=== PATIENT | female | born 1975 | race Two or more races ===

== ENCOUNTER 2023-03-23 14:24 | Outpatient (REF) | payer OTHER, SELFPAY ==
--- NOTE | ~2023-03-23 | XR_ITS ---
EXAMINATION: XR LUMBAR SPINE XR STANDING BILATERAL KNEES, LATERAL BILATERAL KNEES CLINICAL INFORMATION: Bilateral knee pain, low back pain. COMPARISON: None available. TECHNIQUE: 3 views of the lumbar spine. AP standing and lateral views of the bilateral knees. FINDINGS: RIGHT KNEE: No significant joint effusion. Small tricompartmental osteophytes. Mild medial and posterior patellar joint space narrowing. Small amorphous calcifications adjacent to the medial and lateral femoral condyles. LEFT KNEE: Small tricompartmental osteophytes. Small quadriceps spur. Trace joint effusion. Mild medial joint space narrowing. LUMBAR SPINE: Surgical clips in the right upper quadrant. Levoscoliosis of the lumbar spine. Asymmetric, right greater than left, facet arthritis at L4-L5 and L5-S1. Moderate multilevel lumbar spondylosis with mild loss of disc space height at L4-L5 and L5-S1. Grade 1 anterolisthesis of L5 on S1. XR/XR lumbar spine 2-3V IMPRESSION: 1. Mild degenerative changes in the bilateral knees. 2. Asymmetric, right greater than left, facet arthritis at L4-L5 and L5-S1. 3. Moderate multilevel lumbar spondylosis at L4-L5 and L5-S1.
--- NOTE | ~2023-03-23 | XR_ITS ---
EXAMINATION: XR LUMBAR SPINE XR STANDING BILATERAL KNEES, LATERAL BILATERAL KNEES CLINICAL INFORMATION: Bilateral knee pain, low back pain. COMPARISON: None available. TECHNIQUE: 3 views of the lumbar spine. AP standing and lateral views of the bilateral knees. FINDINGS: RIGHT KNEE: No significant joint effusion. Small tricompartmental osteophytes. Mild medial and posterior patellar joint space narrowing. Small amorphous calcifications adjacent to the medial and lateral femoral condyles. LEFT KNEE: Small tricompartmental osteophytes. Small quadriceps spur. Trace joint effusion. Mild medial joint space narrowing. LUMBAR SPINE: Surgical clips in the right upper quadrant. Levoscoliosis of the lumbar spine. Asymmetric, right greater than left, facet arthritis at L4-L5 and L5-S1. Moderate multilevel lumbar spondylosis with mild loss of disc space height at L4-L5 and L5-S1. Grade 1 anterolisthesis of L5 on S1. XR/XR knee standing BI IMPRESSION: 1. Mild degenerative changes in the bilateral knees. 2. Asymmetric, right greater than left, facet arthritis at L4-L5 and L5-S1. 3. Moderate multilevel lumbar spondylosis at L4-L5 and L5-S1.
[2023-03-23 16:14] LABS: MANUAL DIFF FLAG NO
[2023-03-23 16:23] LABS: Basophils Absolute Auto 0.1 X10*3/uL (0.0-0.2); Basophils Percent Auto 0.8 % (0-2); Eosinophils Absolute Auto 0.1 X10*3/uL (0.0-0.4); Eosinophils Percent Auto 1.5 % (0-4); Hematocrit 44.9 % (37.0-47.0); Imm Gran Abs Auto 0.04 X10*3/uL (0.00-0.03); Imm Gran Pct Auto 0.5 % (0.0-0.4); Lymphocytes Absolute Auto 3.2 X10*3/uL (1.2-4.9); Lymphocytes Percent Auto 42.9 % (20-40); Mean Corpuscular HGB Conc 33.4 g/dl (31.0-35.0); Mean Corpuscular Hemoglobin 30.4 pg (27.0-33.0); Mean Corpuscular Volume 90.9 fL (80.0-98.0); Monocytes Absolute Auto 0.9 X10*3/uL (0.1-1.2); Monocytes Percent Auto 12.1 % (2-11); Neutrophils Absolute Auto 3.1 x10*3/uL (2.0-8.3); Neutrophils Percent Auto 42.2 % (45-73); Platelet Count 313 X10*3/uL (160-400); Red Blood Count 4.94 X10*6/uL (4.20-5.50); Red Cell Distribution Width 13.5 % (11.0-16.0); White Blood Count 7.4 X10*3/uL (4.8-10.8)
[2023-03-23 16:51] LABS: Alanine Aminotransferase 39 U/L (0-31); Albumin Level 4.1 g/dL (3.5-5.0); Alkaline Phosphatase 87 U/L (39-117); Anion Gap 16 (12-20); Aspartate Amino Transferase 18 U/L (5-31); Bilirubin Total 0.4 mg/dL (0.0-1.0); Blood Urea Nitrogen 13 mg/dL (9-16); Calcium 9.2 mg/dL (8.4-10.2); Carbon Dioxide 22 mmol/L (22-29); Chloride 108 mmol/L (96-108); Cholesterol 142 mg/dL (<200); Estimated Glomerular Filt Rate > 60; Glucose Random 87 mg/dL (60-115); HDL Cholesterol 49 mg/dL (>40); LDL Cholesterol Calculated 81 mg/dL (<100); Potassium 3.6 mmol/L (3.3-5.1); Sodium 142 mmol/L (135-145); Total Protein 8.1 g/dL (6.5-8.0); Triglycerides 64 mg/dL (<150)
[2023-03-23 17:01] LABS: Free T4 (Free Thyroxine) 0.99 ng/dL (0.71-1.85); Thyroid Stimulating Hormone 0.83 uIU/mL (0.32-4.0)
== END 2023-03-23 14:25 | disposition home or self-care (01) ==
LOC: HO.HMGCX 14:24
PROVIDERS: PCP Internal Medicine; Visit Provider Internal Medicine
DX: M54.50 Low back pain, unspecified (principal); M25.561 Pain in right knee; M25.562 Pain in left knee; E78.5 Hyperlipidemia, unspecified; R53.83 Other fatigue; Z00.00 Encounter for general adult medical examination without abnormal findings
CPT/HCPCS: 36415; 72100; 73565; 80053; 80061; 84439; 84443; 85025